=== PATIENT | male | born 1995 | race Caucasian/White ===

== ENCOUNTER 2017-09-27 16:04 | Outpatient (CLI) | payer OTHER ==
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
== END 2017-09-27 16:05 | disposition home or self-care (01) ==
LOC: MADRAD 16:04
PROVIDERS: ATTEND Family Medicine
DX: S69.91XA Unspecified injury of right wrist, hand and finger(s), initial encounter (principal)

== ENCOUNTER 2018-08-31 23:13 | Emergency (ER) | payer OTHER ==
[2018-08-31] MEDS ORDERED: Ibuprofen 800 MG TAB ONE (23:25)
--- NOTE | 2018-08-31 23:43 | RAD ---
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 No acute superimposed fracture or malalignment. Impression: No acute fracture or malalignment. 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
== END 2018-08-31 23:48 | disposition home or self-care (01) ==
LOC: MADERS 23:13
DX: S60.222A Contusion of left hand, initial encounter (principal); F17.220 Nicotine dependence, chewing tobacco, uncomplicated; W22.8XXA Striking against or struck by other objects, initial encounter

== ENCOUNTER 2018-10-06 16:37 | Emergency (ER) | payer OTHER ==
--- NOTE | 2018-10-06 17:08 | RAD ---
EXAM: 2 views of the right forearm HISTORY: Forearm pain after fall COMPARISON: None FINDINGS: There is no evidence of acute fracture or dislocation. No soft tissue swelling is seen. No degenerative changes are seen in the wrist or elbow. IMPRESSION: No evidence of acute osseous abnormality.
--- NOTE | 2018-10-06 17:16 | RAD ---
EXAM: 4 views of the right wrist HISTORY: Wrist pain after fall COMPARISON: None FINDINGS: 4 views of the right wrist shows no evidence of acute fracture or dislocation. No soft tiss ue swelling is seen. No degenerative changes are present. IMPRESSION: No evidence of acute osseous abnormality.
== END 2018-10-06 17:27 | disposition home or self-care (01) ==
LOC: MADERS 16:37
DX: S63.501A Unspecified sprain of right wrist, initial encounter (principal); S50.11XA Contusion of right forearm, initial encounter; F17.220 Nicotine dependence, chewing tobacco, uncomplicated; W17.89XA Other fall from one level to another, initial encounter